=== PATIENT | female | born 1975 | race Caucasian/White ===

== ENCOUNTER 2020-10-27 09:38 | Emergency (ER) | payer OTHER ==
[2020-10-27 10:14] LABS: BASOPHIL 0.5 % (0-2); EOSINOPHIL 3.4 % (0-5); HCT 43.5 % (37.0-47.0); HGB 13.8 g/dl (12.5-16.0); LYMPHOCYTE 21.4 % (15-48); MCH 29.6 pg (25.0-31.0); MCHC 31.7 g/dL (32.0-36.0); MCV 93.1 fL (78.0-100.0); MONOCYTE 3.7 % (0-12); MPV 12.2 fL (6.0-9.5); NEUTROPHIL 70.6 % (41-80); NRBC 0; PLT 219 K/uL (150-400); RBC 4.67 M/uL (4.20-5.40); RDW 13.7 % (11.5-14.0); WBC 7.4 K/uL (4.0-10.5)
[2020-10-27 10:33] LABS: PROTHROMBIN TIME 12.5 SECONDS (11.4-13.6)
[2020-10-27 10:34] LABS: PTT 31.6 SECONDS (22.2-34.7)
[2020-10-27 10:47] LABS: ALBUMIN 3.3 g/dL (3.4-5.0); BILIRUBIN - TOTAL 0.3 mg/dL (0.2-1.0); BUN/CREAT RATIO (CALC) 18.3 RATIO; CREATININE 0.82 mg/dL (0.51-0.95); GLOBULIN (CALCULATION) 3.6 g/dL; POTASSIUM 3.5 mmol/L (3.5-5.1); TOTAL PROTEIN 6.9 g/dL (6.4-8.2)
[2020-10-27] MEDS ORDERED: MEDROL 4MG DOSEP4 MG PO (13:41)
[2020-10-27] MEDS ORDERED: VIBRAMYCIN100 MG PO (13:41)
== END 2020-10-27 14:07 | disposition home or self-care (01) ==
LOC: FER 09:38
PROVIDERS: Emergency Medicine
DX: R07.89 Other chest pain (principal)
CPT/HCPCS: 36415; 71045; 71260; 80053; 84484; 85025; 85610; 85730; 93005; Q9967

== ENCOUNTER 2021-12-15 14:35 | Emergency (ER) | payer OTHER ==
[~2021-12-15 14:35] MED LIST: MEDROL 4MG DOSEP4 MG PO; VIBRAMYCIN100 MG PO
[2021-12-15 15:32] LABS: BASOPHIL 0.1 % (0-2); EOSINOPHIL 0.1 % (0-5); HCT 46.7 % (37.0-47.0); LYMPHOCYTE 3.8 % (15-48); MCHC 32.1 g/dL (32.0-36.0); MCV 90.3 fL (78.0-100.0); MPV 11.7 fL (6.0-9.5); NRBC 0; PLT 269 K/uL (150-400); RBC 5.17 M/uL (4.20-5.40); RDW 13.6 % (11.5-14.0); WBC 10.9 K/uL (4.0-10.5)
[2021-12-15 15:33] LABS: NEUTROPHIL 93.6 % (41-80)
[2021-12-15 15:53] LABS: ALBUMIN 3.7 g/dL (3.4-5.0); BILIRUBIN - TOTAL 0.4 mg/dL (0.2-1.0); BUN/CREAT RATIO (CALC) 19.8 RATIO; CREATININE 0.81 mg/dL (0.51-0.95); GLOBULIN (CALCULATION) 4.4 g/dL; POTASSIUM 3.5 mmol/L (3.5-5.1); TOTAL PROTEIN 8.1 g/dL (6.4-8.2)
[2021-12-15 16:39] LABS: CORONAVIRUS 2019 SARS-COV-2 NEGATIVE (NEGATIVE); INFLUENZA A NAA NEGATIVE (NEGATIVE)
[2021-12-15 17:11] LABS: BILIRUBIN NEGATIVE (NEGATIVE); BLOOD NEGATIVE Ery/uL (NEGATIVE); COLOR YELLOW (YELLOW); GLUCOSE (U) NORMAL (NORMAL); LEUKOCYTES NEGATIVE Leu/uL (NEGATIVE); NITRITE NEGATIVE (NEGATIVE); PROTEIN 1+ mg/dL (NEGATIVE); SPECIFIC GRAVITY >=1.030 (1.001-1.030); UROBILINOGEN 0.2 mg/dL (0.2-1.0)
[2021-12-15 17:47] LABS: CLARITY SLIGHTLY HAZY (CLEAR)
[2021-12-15 17:48] LABS: BACTERIA TRACE; MUCOUS MODERATE; URINARY WBC RARE
[2021-12-15] MEDS ORDERED: BENTYL10 MG PO (18:07)
[2021-12-15] MEDS ORDERED: ONDANSETRON HCL4 MG PO (18:07)
[2021-12-15] MEDS ORDERED: CIPRODEX OTIC7.5 ML EARRT (18:07)
== END 2021-12-15 18:40 | disposition home or self-care (01) ==
LOC: FER 14:35
PROVIDERS: Nurse Practitioner Family
DX: R10.84 Generalized abdominal pain (principal); R11.2 Nausea with vomiting, unspecified; R19.7 Diarrhea, unspecified; H66.91 Otitis media, unspecified, right ear; Z20.822 Contact with and (suspected) exposure to COVID-19; Z28.310 Unvaccinated for COVID-19
CPT/HCPCS: 36415; 80053; 81001; 85025; J1885; J2405; J7030; Q9967; U0002